=== PATIENT | female | born 1995 | race Caucasian/White ===

== ENCOUNTER 2019-06-05 23:16 | Emergency (ER) | payer BC ==
[2019-06-05 23:25] VITALS: BP 126/71; PULSE 121; TEMP 98.5; BMI 37.2
== END 2019-06-06 00:35 | disposition left against medical advice (07) ==
LOC: JER 23:16
DX: Z53.21 Procedure and treatment not carried out due to patient leaving prior to being seen by health care provider (principal)
CPT/HCPCS: 99281-25